=== PATIENT | female | born 1945 | race Caucasian/White ===

== ENCOUNTER 2019-10-14 18:14 | Emergency (ER) | payer MEDICARE ==
[~2019-10-14] VITALS: Ht 172.7 cm; Wt 98.0 kg
[2019-10-14] MEDS ORDERED: IV NORMAL SALINE 1000ML BAG 1,000 ML IV SCH (18:18)
--- NOTE | 2019-10-14 18:29 | PHYS DOC ---
General Adult EDM: Chief Complaint: HYPOGLYCEMIA HPI: HPI: Patient is a 74 year old female who presents via EMS after reportedly falling due to low blood sugar. Family went to check on her and patient was found down. EMS was called and first responders reported that initial blood sugar was 30. Patient was given a dose of IM glucagon. Patient does complain of headache as well as neck pain. She also complains of right knee pain. She denies any chest pain or shortness breath.[] Review of Systems: Review of Systems: Constitutional: Denies fever or chills. [] Respiratory: Denies cough or shortness of breath. [] Cardiovascular: Denies chest pain or edema. [] GI: Denies abdominal pain, nausea, vomiting or diarrhea. [] Musculoskeletal: Complains of neck and right knee pain. [] Integument: Denies rash. [] Neurologic: Complains of headache without focal weakness or sensory changes. [] A full 10 point review of systems has been reviewed and is otherwise negative. Heart Score: Risk Factors: Risk Factors: DM, Current or recent (<one month) smoker, HTN, HLP, family history of CAD, obesity. Risk Scores: Score 0 - 3: 2.5% MACE over next 6 weeks - Discharge Home Score 4 - 6: 20.3% MACE over next 6 weeks - Admit for Clinical Observation Score 7 - 10: 72.7% MACE over next 6 weeks - Early Invasive Strategies Current Medications: Current Medications Medications (Trade) Dose Ordered Sig/Maynor Start Time Stop Time Status Last Admin Dose Admin Sodium Chloride 1,000 ml @ 1,000 mls/hr Q1H 10/14/19 18:18 10/14/19 19:17 UNV Physical Exam: PE: Constitutional: Well developed, well nourished, no acute distress, non-toxic appearance. [] HENT: Normocephalic, atraumatic, bilateral external ears normal, oropharynx moist, no oral exudates, patient does have a chipped right upper incisor on the right. [] Eyes: PERRLA, EOMI, conjunctiva normal, no discharge. [] Neck: Cervical collar is in place. [] Cardiovascular: Regular rate and rhythm[] Lungs & Thorax: Bilateral breath sounds clear to auscultation [] Abdomen: Bowel sounds normal, soft, no tenderness. [] Skin: Warm, dry, no erythema, no rash. [] Extremities: Examination of right knee demonstrates tenderness to palpation over the patella. [] Neurologic: Alert and oriented X 3, no focal deficits noted. [] EKG: EKG: [] Radiology/Procedures: Radiology/Procedures: [] Impression: Examination: CT head and cervical spine without contrast CT HEAD INDICATION: Fall COMPARISON: None Available. Exposure: One or more of the following individualized dose reduction techniques were utilized for this examination: 1. Automated exposure control 2. Adjustment of the mA and/or kV according to patient size 3. Use of iterative reconstruction technique TECHNIQUE: 5 mm contiguous axial images were obtained from the skull base to the vertex in both bone and soft tissue algorithm. FINDINGS: No abnormal attenuation within the brain parenchyma. No evidence of acute intracranial hemorrhage. No extra-axial fluid collections. No mass effect or midline shift. Ventricular size is appropriate. Basal cisterns are patent. No fractures identified.Gavin-white differentiation is preserved.Globes and orbits are within normal limits. Paranasal sinuses and mastoid air cells are clear. IMPRESSION: No acute intracranial findings. CT CERVICAL SPINE COMPARISON: None Available. Technique: 2.5 mm contiguous axial images were obtained from the skull base through the cervicothoracic junction in both bone and soft tissue algorithm. Additional sagittal and coronal reconstructions were also performed. FINDINGS: Vertebral body height and alignment are maintained. Cervical lordosis is preserved. The lateral masses of C1 are aligned upon C2. Anterior cervical fusion hardware identified at C4, C5, C6 vertebral levels with vertebral body fusion of the C4-C5, C5-C6 vertebral levels. The bilateral facets are well aligned. Moderate intervertebral disc height loss identified at C6-C7 vertebral levels. The bilateral facets are well aligned. No fractures identified. The bony canal is patent throughout. No significant degenerative changes are identified. The paraspinous soft tissues are unremarkable. Visualized intracranial contents are unremarkable. Lung apices are clear. IMPRESSION: 1. No acute fracture of the cervical spine. Correlate clinically. 2. Cervical fusion of C4, C5, C6 vertebral levels with anterior fusion hardware. Electronically signed by: Osman Brunner MD (10/14/2019 7:14 PM) [id number] DICTATED and SIGNED BY: OSMAN BRUNNER MD DATE: 10/14/191913 Course & Med Decision Making: Course & Med Decision Making Pertinent Labs and Imaging studies reviewed. (See chart for details) [] Dragon Disclaimer: Dragon Disclaimer: This electronic medical record was generated, in whole or in part, using a voice recognition dictation system. Departure Departure Impression: Primary Impression: Hypoglycemia Additional Impressions: Cervical sprain Qualified Codes: S13.9XXA - Sprain of joints and ligaments of unspecified parts of neck, initial encounter Contusion of right knee Qualified Codes: S80.01XA - Contusion of right knee, initial encounter Disposition: HOME, SELF-CARE Condition: STABLE Patient Instructions: Cervical Sprain, Contusion, Hypoglycemia (Low Blood Sugar) Scripts Orphenadrine Citrate (ORPHENADRINE CITRATE) 100 Mg Tablet.er 1 TAB PO BID PRN for MUSCLE SPASMS, #14 TAB Prov: JAS ANDERSON Jr. DO 10/14/19 Diclofenac Sodium (DICLOFENAC SODIUM) 50 Mg Tablet.dr 1 TAB PO BID PRN for PAIN, #20 TAB Prov: JAS ANDERSON Jr. DO 10/14/19 JAS ANDERSON Jr. DO Oct 14, 2019 18:29
[2019-10-14 18:41] LABS: BASO % 0 % (0-3); EOS # 0.1 x10^3/uL (0.0-0.7); EOS % 2 % (0-3); HEMATOCRIT 33.3 % (36.0-47.0); HEMOGLOBIN 11.1 g/dL (12.0-15.5); LYMPH # 2.2 x10^3/uL (1.0-4.8); LYMPH % 48 % (24-48); MEAN CORPUSCULAR HEMOGLOBIN 30 pg (25-35); MEAN CORPUSCULAR HGB CONC 34 g/dL (31-37); MEAN CORPUSCULAR VOLUME 91 fL (79-100); MONO # 0.4 x10^3/uL (0.0-1.1); MONO % 9 % (0-9); NEUT # 1.9 x10^3/uL (1.8-7.7); NEUT % 41 % (31-73); PLATELET COUNT 156 x10^3/uL (140-400); RED BLOOD COUNT 3.68 x10^6/uL (3.50-5.40); RED CELL DISTRIBUTION WIDTH 13.2 % (11.5-14.5); WHITE BLOOD COUNT 4.7 x10^3/uL (4.0-11.0)
[2019-10-14 18:55] LABS: CALCIUM 8.4 mg/dL (8.5-10.1); GFR 24.4; POTASSIUM 3.6 mmol/L (3.5-5.1)
[2019-10-14 18:58] LABS: ALBUMIN 2.6 g/dL (3.4-5.0); ALBUMIN/GLOBULIN RATIO 0.7 (1.0-1.7); MAGNESIUM 1.9 mg/dL (1.8-2.4); TOTAL BILIRUBIN 0.2 mg/dL (0.2-1.0); TOTAL PROTEIN 6.3 g/dL (6.4-8.2)
--- NOTE | 2019-10-14 19:17 | RAD ---
Examination: CT head and cervical spine without contrast CT HEAD INDICATION: Fall COMPARISON: None Available. Exposure: One or more of the following individualized dose reduction techniques were utilized for this examination: 1. Automated exposure control 2. Adjustment of the mA and/or kV according to patient size 3. Use of iterative reconstruction technique TECHNIQUE: 5 mm contiguous axial images were obtained from the skull base to the vertex in both bone and soft tissue algorithm. FINDINGS: No abnormal attenuation within the brain parenchyma. No evidence of acute intracranial hemorrhage. No extra-axial fluid collections. No mass effect or midline shift. Ventricular size is appropriate. Basal cisterns are patent. No fractures identified.Gavin-white differentiation is preserved.Globes and orbits are within normal limits. Paranasal sinuses and mastoid air cells are clear. IMPRESSION: No acute intracranial findings. CT CERVICAL SPINE COMPARISON: None Available. Technique: 2.5 mm contiguous axial images were obtained from the skull base through the cervicothoracic junction in both bone and soft tissue algorithm. Additional sagittal and coronal reconstructions were also performed. FINDINGS: Vertebral body height and alignment are maintained. Cervical lordosis is preserved. The lateral masses of C1 are aligned upon C2. Anterior cervical fusion hardware identified at C4, C5, C6 vertebral levels with vertebral body fusion of the C4-C5, C5-C6 vertebral levels. The bilateral facets are well aligned. Moderate intervertebral disc height loss identified at C6-C7 vertebral levels. The bilateral facets are well aligned. No fractures identified. The bony canal is patent throughout. No significant degenerative changes are identified. The paraspinous soft tissues are unremarkable. Visualized intracranial contents are unremarkable. Lung apices are clear. IMPRESSION: 1. No acute fracture of the cervical spine. Correlate clinically. 2. Cervical fusion of C4, C5, C6 vertebral levels with anterior fusion hardware. Electronically signed by: Osman Alfredo MD (10/14/2019 7:14 PM) [id number]
--- NOTE | 2019-10-14 19:37 | RAD ---
Examination: 3 views of the right knee HISTORY: History of fall, right knee pain COMPARISON: None available FINDINGS: Right total knee arthroplasty changes in normal alignment. There is no acute fracture or dislocation identified. IMPRESSION: No acute osseous findings. Electronically signed by: Osman Alfredo MD (10/14/2019 7:34 PM) [id number]
[2019-10-14 19:53] VITALS: BP 173/75
[2019-10-14] MEDS ORDERED: DICL50TA4 PO (21:48)
[2019-10-14] MEDS ORDERED: ORPH100T PO (21:48)
--- NOTE | 2019-10-14 23:01 | EKG ---
[facility] [address] [place] [address] Test Date: 2019-10-14 Test Time: 18:22:53 Pat Name: LB JACKSON Department: Room: Gender: F Medical Information Specialist: : [id number] Requested By: JAS ANDERSON Order Number: [id number] Reading MD: Bahman Parikh MD Measurements Intervals [place] Rate: 83 P: 62 DC: 154 QRS: 8 QRSD: 94 T: 52 QT: 382 QTc: 449 Interpretive Statements SINUS RHYTHM NON-SPECIFIC ST/T CHANGES Electronically Signed On 10-16-2019 13:24:39 CDT by Bahman Parikh MD
== END 2019-10-14 22:00 | disposition home or self-care (01) ==
LOC: ER 18:14
DX: S13.9XXA Sprain of joints and ligaments of unspecified parts of neck, initial encounter (principal); S80.01XA Contusion of right knee, initial encounter; E16.2 Hypoglycemia, unspecified; R51 Headache; Z98.1 Arthrodesis status; W18.39XA Other fall on same level, initial encounter; Y93.89 Activity, other specified; Y92.89 Other specified places as the place of occurrence of the external cause; Y99.8 Other external cause status
CPT/HCPCS: 36415; 70450; 72125; 73562; 80053; 82962; 83735; 85025; 93005; 99285; J7030